=== PATIENT | female | born 1930 | race Caucasian/White ===

== ENCOUNTER → 2017-12-18 | Outpatient (CLI) | payer OTHER | LOC: HYPER 07:06 | DX: L97.516 Non-pressure chronic ulcer of other part of right foot with bone involvement without evidence of necrosis (principal); I13.0 Hypertensive heart and chronic kidney disease with heart failure and stage 1 through stage 4 chronic kidney disease, or unspecified chronic kidney disease; N18.9 Chronic kidney disease, unspecified; I50.9 Heart failure, unspecified; I25.2 Old myocardial infarction; J44.9 Chronic obstructive pulmonary disease, unspecified; K21.9 Gastro-esophageal reflux disease without esophagitis; Z87.891 Personal history of nicotine dependence; Z96.652 Presence of left artificial knee joint; Z89.421 Acquired absence of other right toe(s) ==

== ENCOUNTER → 2017-12-26 | Outpatient (CLI) | payer OTHER | LOC: HYPER 07:12 | DX: L97.516 Non-pressure chronic ulcer of other part of right foot with bone involvement without evidence of necrosis (principal); G60.3 Idiopathic progressive neuropathy; M86.8X8 Other osteomyelitis, other site; I13.0 Hypertensive heart and chronic kidney disease with heart failure and stage 1 through stage 4 chronic kidney disease, or unspecified chronic kidney disease; I50.9 Heart failure, unspecified; I25.2 Old myocardial infarction; J44.9 Chronic obstructive pulmonary disease, unspecified; K21.9 Gastro-esophageal reflux disease without esophagitis; L84 Corns and callosities; Z87.891 Personal history of nicotine dependence; Z96.652 Presence of left artificial knee joint; Z89.421 Acquired absence of other right toe(s); Z89.412 Acquired absence of left great toe; Z89.422 Acquired absence of other left toe(s) ==

== ENCOUNTER → 2018-01-09 | Outpatient (CLI) | payer OTHER | LOC: HYPER 07:05 | DX: L97.516 Non-pressure chronic ulcer of other part of right foot with bone involvement without evidence of necrosis (principal); L84 Corns and callosities; M86.8X8 Other osteomyelitis, other site; I13.0 Hypertensive heart and chronic kidney disease with heart failure and stage 1 through stage 4 chronic kidney disease, or unspecified chronic kidney disease; I50.9 Heart failure, unspecified; N18.9 Chronic kidney disease, unspecified; I25.2 Old myocardial infarction; J44.9 Chronic obstructive pulmonary disease, unspecified; K21.9 Gastro-esophageal reflux disease without esophagitis; Z87.891 Personal history of nicotine dependence; Z96.652 Presence of left artificial knee joint; Z89.421 Acquired absence of other right toe(s) ==

== ENCOUNTER → 2018-01-23 | Outpatient (CLI) | payer OTHER ==
[~2018-01-23] VITALS: Ht 165.1 cm; Wt 67.0 kg
[~2018-01-23] MED LIST: ADVAIR HFA 230M12 GM INH; ALLOPURINOL 10100 M1 PO; BAYER CHEWABLE81 MG PO; ESTRADIOL 1 MG T1 M1 PO; FENOFIBRATE48 MG PO; HYDROCHLOROTHIA25 M1 PO; NEURONTIN 400400 M1 PO; NORVASC10 MG PO; PRILOSEC 10MG C10 MG PO; VALIUM5 MG PO; VITAMINC500 PO
--- NOTE | ~2018-01-23 | HC ---
[facility] [place] [address] CONSULTATION Name: JANE YADAV Room #: REG MARIANNE Mouna#: [id number] Admission: 01/23/18 Attend Phys: Anthony Stephenson Discharge: Date of : 32 Report #: [id number] THIS REPORT FOR: //name// CC: Anthony Pearson [facility] DO Kolton Tello MD DATE OF SERVICE: 01/23/2018 HISTORY OF PRESENT ILLNESS: The patient is an 87-year-old white woman with history of a peripheral neuropathy, undetermined etiology, who has required previous transmetatarsal amputation of the right foot in 02/[address] Hayes at [facility] (orthopedic surgeon). The patient developed a chronic sinus tract ulcer under the head of the right first metatarsal some 3 or 4 months ago, was evaluated by Dr. Kolton Tello. Cultures were obtained on 12/18/2017 and they revealed 4+ Enterobacter cloacae and 3+ Proteus mirabilis, both sensitive to ciprofloxacin, ertapenem and cefepime. The patient did receive treatment with Cipro 500 mg p.o. b.i.d. for some 10 days. She did have an MRI of the right foot and this revealed marrow edema at the first metatarsal. On account of this, she is seeing me today in Infectious Disease consultation. PAST MEDICAL HISTORY: Left total knee replacement, bilateral shoulder rotator cuff surgery. Hypertension. Dyslipidemia. C-spine laminectomy. History of scoliosis. Cataract surgery. Appendectomy. Peripheral neuropathy undetermined type that appears to be running in the family. I entertained possibly a Bcrghzf-Eczwu-Qbpbs disease. DRUG ALLERGIES: None listed. MEDICATIONS: She is on treatment with fluconazole, salmeterol inhalation treatments for COPD, aspirin 81 mg daily, diazepam 5-10 mg b.i.d., gabapentin 400 mg t.i.d., estradiol 1 mg daily, hydrochlorothiazide 25 mg daily, allopurinol 100 mg daily, amlodipine besylate 10 mg daily, omeprazole 10 mg 2 capsules twice daily, fenofibrate 48 mg daily, vitamin C 500 mg b.i.d. SOCIAL HISTORY: . Comes to clinic with the patient's son and pmsjqgov-re-pok. The patient's son relates she also had peripheral neuropathy. REVIEW OF SYSTEMS: Noncontributory. PHYSICAL EXAMINATION: GENERAL: This is a well-developed, well-nourished 87-year-old woman in no distress. VITAL SIGNS: Weight 152.8, BP 142/71, pulse 79, temperature 97.7, O2 saturation [address] [address] CONSULTATION Name: JANE YADAV Room #: CARLOS ALBERTO Freire#: [id number] Admission: 01/23/18 Attend Phys: Anthony Stephenson Discharge: Date of : 32 Report #: [id number] 98% on room air. HEENMT: Status post cataract surgery. Mouth: Good oral hygiene, dentition. NECK: Supple. BREASTS: Deferred. LUNGS: Clear. HEART: S1, S2. ABDOMEN: Soft, no masses or megaly. EXTREMITIES: Status post remote transmetatarsal amputation, right foot, perfectly healed. On the sole of the right foot under the head of the right first metatarsal, there is sick sinus tract. This is probed with Q-Tip and I do not detect feel bone, but Dr. Tello tells me the previous probing did reveal bone that is why the MRI obtained that revealed findings compatible with osteomyelitis, first metatarsal. LABORATORY DATA: Cultures as dictated above. MRI findings as reported above. Renal function test was said to be normal. I have no black and white report. I will get those for the next time the patient visits with me. ASSESSMENT: 1. Chronic osteomyelitis, right first metatarsal with Enterobacter cloacae and Proteus mirabilis. 2. Remote transmetatarsal amputation, right foot. 3. Peripheral neuropathy, question Bhevyny-Uxvdb-Bjxid. 4. Hypertension. 5. Dyslipidemia. 6. Question history of gout. SUGGESTIONS: Discussed situation with Dr. Kolton Tello. Recommend treatment as for chronic osteomyelitis. We will attempt to treat with oral antibiotics, Cipro 500 mg b.i.d., #60, 2 refills. Reviewed MRI of the foot with radiologist at [facility]. I requested the patient visit with me again in 2-3 weeks. <ELECTRONICALLY SIGNED> By: Anthony Pearson MD 01/24/18 0934 1157 [id number] Anthony Pearson MD /nt
[2018-01-23 11:09] VITALS: BP 142/71
== END ==
LOC: SEN 06:44 → HYPER 06:44
DX: M86.671 Other chronic osteomyelitis, right ankle and foot (principal); B96.4 Proteus (mirabilis) (morganii) as the cause of diseases classified elsewhere; B96.89 Other specified bacterial agents as the cause of diseases classified elsewhere; G62.9 Polyneuropathy, unspecified; I10 Essential (primary) hypertension; E78.5 Hyperlipidemia, unspecified; Z89.431 Acquired absence of right foot

== ENCOUNTER → 2018-01-28 | Outpatient (CLI) | payer OTHER | LOC: HYPER 06:52 | DX: L97.516 Non-pressure chronic ulcer of other part of right foot with bone involvement without evidence of necrosis (principal); L84 Corns and callosities; I13.0 Hypertensive heart and chronic kidney disease with heart failure and stage 1 through stage 4 chronic kidney disease, or unspecified chronic kidney disease; I50.9 Heart failure, unspecified; I25.2 Old myocardial infarction; I10 Essential (primary) hypertension; G60.3 Idiopathic progressive neuropathy; J44.9 Chronic obstructive pulmonary disease, unspecified; K21.9 Gastro-esophageal reflux disease without esophagitis; Z87.891 Personal history of nicotine dependence; Z96.652 Presence of left artificial knee joint; Z89.421 Acquired absence of other right toe(s) ==

== ENCOUNTER → 2018-01-30 | Outpatient (CLI) | payer OTHER | LOC: HYPER 06:49 | DX: L97.516 Non-pressure chronic ulcer of other part of right foot with bone involvement without evidence of necrosis (principal); L84 Corns and callosities; M86.8X8 Other osteomyelitis, other site; I13.0 Hypertensive heart and chronic kidney disease with heart failure and stage 1 through stage 4 chronic kidney disease, or unspecified chronic kidney disease; I50.9 Heart failure, unspecified; G60.3 Idiopathic progressive neuropathy; I25.2 Old myocardial infarction; I10 Essential (primary) hypertension; J44.9 Chronic obstructive pulmonary disease, unspecified; K21.9 Gastro-esophageal reflux disease without esophagitis; Z87.891 Personal history of nicotine dependence; Z96.652 Presence of left artificial knee joint; Z89.421 Acquired absence of other right toe(s) ==

== ENCOUNTER → 2018-02-06 | Outpatient (CLI) | payer OTHER ==
[~2018-02-06] MED LIST changes: +CENTRUM SILVER1 EAC4 PO; +NORCO 5-325 TA1 EACH PO; +ZYVOX600 MG PO
== END ==
LOC: HYPER 06:51
DX: L97.516 Non-pressure chronic ulcer of other part of right foot with bone involvement without evidence of necrosis (principal); L84 Corns and callosities; M86.8X8 Other osteomyelitis, other site; G60.3 Idiopathic progressive neuropathy; I13.0 Hypertensive heart and chronic kidney disease with heart failure and stage 1 through stage 4 chronic kidney disease, or unspecified chronic kidney disease; I50.9 Heart failure, unspecified; N18.9 Chronic kidney disease, unspecified; I25.2 Old myocardial infarction; J44.9 Chronic obstructive pulmonary disease, unspecified; K21.9 Gastro-esophageal reflux disease without esophagitis; Z89.422 Acquired absence of other left toe(s); Z89.412 Acquired absence of left great toe; Z87.891 Personal history of nicotine dependence; Z96.652 Presence of left artificial knee joint; Z89.421 Acquired absence of other right toe(s)

== ENCOUNTER 2018-02-11 05:30 | Inpatient (IN) | payer OTHER ==
[~2018-02-11] VITALS: Ht 167.6 cm; Wt 74.0 kg
[2018-02-11] VITALS (12 sets, daily range): BP systolic 107–199; BP diastolic 44–80
--- NOTE | ~2018-02-11 | HC ---
[facility] [place] [address] CONSULTATION Name: JANE YADAV Room #: 449-I [facility] IN M.R.#: [id number] Admission: 02/11/18 Attend Phys: Mayito Concepcion MD Discharge: 02/13/18 Date of : 32 Report #: [id number] THIS REPORT FOR: //name// CC: Ebenezer Concepcion DATE OF SERVICE: 02/12/2018 ATTENDING PHYSICIAN: Dr. Concepcion. REASON FOR CONSULTATION: Antibiotic management, osteomyelitis, right first metatarsal. HISTORY OF PRESENT ILLNESS: The patient is an 87-year-old white woman who initially underwent transmetatarsal amputation of the right foot in 02/[address] Hayes at [facility]. The patient subsequently developed sinus tract under the head of the right first metatarsal on MRI compatible with osteomyelitis. Initial culture revealed Enterobacter cloacae and Proteus mirabilis, treated with ciprofloxacin orally. Repeat cultures on 01/2018 revealed MRSA, Enterococcus faecalis, antibiotic changed to Zyvox. The patient undergoes right amputation, right first metatarsal. The patient thought calling me because she was having second thoughts about surgery. PAST MEDICAL HISTORY: Left total knee replacement. Bilateral shoulder rotator cuff surgery. Hypertension. C-spine laminectomy. Dyslipidemia. Scoliosis. Cataract surgery. Appendectomy. Peripheral neuropathy, undetermined etiology, possible familial in nature since the patient's son also had the same problem. I entertain possibility of Dqvolvz-Hcied-Sfqrs disease. DRUG ALLERGIES: None listed. MEDICATIONS: The patient on enoxaparin, gabapentin ____ 600 mg p.o. b.i.d., polyethylene glycol 17 grams p.o. daily, famotidine 20 mg daily, docusate 100 mg b.i.d., Atrovent/albuterol q. 6 hours, budesonide inhalation treatment, meropenem 500 IV every 8 hours, half normal saline 1000 mL every 10 hours, hydrocodone p.r.n., morphine sulfate p.r.n., magnesium oxide x 1. SOCIAL HISTORY: See old records and H and P. FAMILY HISTORY: See old records and H and P. REVIEW OF SYSTEMS: Pain foot. Otherwise, noncontributory. PHYSICAL EXAMINATION: GENERAL: Well-developed woman, not toxic looking, no distress. VITAL SIGNS: Temperature 97.9, pulse 84, respirations 18, BP 136/52. [address] [address] CONSULTATION Name: JANE YADAV Room #: 449-I DIS IN .R.#: [id number] Admission: 02/11/18 Attend Phys: Mayito Concepcion MD Discharge: 02/13/18 Date of : 32 Report #: [id number] HEENMT: Within range. NECK: Supple, no thyromegaly. LUNGS: Clear. BREASTS: Deferred. HEART: S1, S2. No gallop or murmur. ABDOMEN: Soft, no masses or megaly. EXTREMITIES: No clubbing, cyanosis. Dressing and FLORENCIO right foot intact. We will try to remove those tomorrow. LABORATORY DATA: Culture obtained of the right foot wound on 01/28/2018 revealed 4+ methicillin-resistant Staphylococcus aureus and 4+ Enterococcus faecalis. Sodium 140, potassium 4, BUN 23, creatinine 1, magnesium 1.4. WBC 6.9, hemoglobin 10.3, platelets 173,000. ASSESSMENT: 1. Right first metatarsal osteomyelitis infection with Enterobacter cloacae and Proteus mirabilis initially; subsequent culture revealed methicillin-resistant Staphylococcus aureus and Enterococcus faecalis. 2. Status post ray amputation, right first metatarsal. 3. Remote history of transmetatarsal amputation, right foot. 4. Peripheral neuropathy, question etiology. 5. Hypomagnesemia. SUGGESTIONS: Recommend continue Zyvox 600 mg p.o. b.i.d. for another 10 days. We will follow the patient in the senior's clinic in 7-[address] Concepcion, thank you for requesting my suggestion. <ELECTRONICALLY SIGNED> By: Anthony Pearson MD 02/15/18 0554 0825 1033 Anthony Pearson MD /nt
--- NOTE | ~2018-02-11 | PATH ---
[facility] [address] [place] [address] PATHOLOGY RPT PROCEDURE Name: JANE YADAV Room #: 449-I DIS IN M.R.#: [id number] Admission: 02/11/18 Date of : 32 Discharge: 02/13/18 Report #: [id number] Path Case #: [id number] [facility] Accession Number: [id number] . 01 Material submitted: . RIGHT GREAT TOE . 01 Clinical history: . Right great toe osteomyelitis . 02 Diagnosis: Bone, right first metatarsal, amputation: - Bone at one end showing acute and chronic inflammation, compatible with the provided history of osteomyelitis. - Bone at the opposite end viable and unremarkable. (IUV:pit 02/13/2018) QTP/02/13/2018 . 02 Electronically signed: . Lauryn Florez MD, Pathologist NPI- [id number] . 01 Gross description: . The specimen is received in formalin, labeled "Jane Yadav, right first transmetatarsal", is a bone with attached cho-white soft tissue measuring 3.0 cm in length by 2.0 cm width. One surface shows a palmer smooth bone (inked black) with the opposite consisting of cortical, disrupted bone (inked blue). The specimen is longitudinally sectioned and a longitudinal territory service representative section is submitted in A1-A2. ([facility]; 02/11/2018) [facility] . 02 Pathologist provided ICD-10: M86.8X7 . 02 CPT . 708649, 157007 Specimen Comment: A courtesy copy of this report has been sent to Specimen Comment: [phone]. Specimen Comment: Report sent to Performed at: [address] [id number] MD Rigo Mares MD Phone: [phone] Performed at: [address] [id number] [address] [address] PATHOLOGY RPT PROCEDURE Name: JANE YADAV Room #: 449-I DIS IN M.R.#: [id number] Admission: 02/11/18 Date of : 32 Discharge: 02/13/18 Report #: [id number] Path Case #: [id number] MD Lauryn Florez MD Phone: [phone]
--- NOTE | ~2018-02-11 | EKG ---
[place] [address] [facility] [place] [address] ELECTROCARDIOGRAM REPORT Name: JANE YADAV Room #: 449-I ADM IN M.R.#: [id number] Admission: 02/11/18 Attend Phys: Mayito Concepcion MD Discharge: Date of : 32 Report #: [id number] THIS REPORT FOR: //name// [facility] Test Date: 2018-02-11 Test Time: 11:22:34 Pat Name: JANE YADAV Department: Room: [facility] Gender: F Telephone Solicitor: VARGAS : 1930 Requested By: Mayito Concepcion Order Number: [id number] MD: Luís Quintero Measurements Intervals [place] Rate: 83 P: 54 WA: 168 QRS: -21 QRSD: 90 T: 4 QT: 369 QTc: 434 Interpretive Statements Sinus rhythm Ventricular premature complex Borderline left axis deviation Poor R wave progression No previous ECG available for comparison Electronically Signed On 02-12-2018 8:39:57 PARCEL POST ORDER CLERK by Luís Quintero [email or web address] <ELECTRONICALLY SIGNED> By: Luís Quintero MD, [facility] 02/12/18 0839 21 21 Luís Quintero MD, FACC /EPI
--- NOTE | ~2018-02-11 | HC ---
[facility] [place] [address] CONSULTATION Name: JANE YADAV Room #: 449-I [facility] IN M.R.#: [id number] Admission: 02/11/18 Attend Phys: Mayito Concepcion MD Discharge: 02/13/18 Date of : 32 Report #: [id number] THIS REPORT FOR: //name// CC: Ebenezer Concepcion DATE OF SERVICE: 02/12/2018 REASON FOR CONSULTATION: Postoperative consultation, status post orthopedic surgery by Dr. Concepcion for osteomyelitis. HISTORY OF PRESENT ILLNESS: The patient is an 87-year-old woman, patient of Dr. Concepcion under consultation by Dr. Pearson who had undergone transmetatarsal amputation of the right foot on 02/[address] Hayes at [facility]. The patient developed a sinus tract into the head of the right first metatarsal. An MRI showed osteomyelitis. The patient is now postoperative day #1 status post debridement for osteomyelitis by Dr. Concepcion. Wound care team has been consulted for postoperative wound management. PAST MEDICAL HISTORY: Left total knee replacement, bilateral rotator cuff surgery, hypertension, history of cervical spine laminectomy, dyslipidemia, scoliosis, peripheral neuropathy. PAST SURGICAL HISTORY: Appendectomy, C-spine laminectomy, bilateral shoulder rotator cuff surgery, transmetatarsal amputation of right foot on 02/2017, now postoperative day #[address] Concepcion. MEDICATIONS: Include Lovenox, gabapentin, famotidine, docusate, budesonide, meropenem, hydrocodone, morphine. SOCIAL HISTORY: Noncontributory. PHYSICAL EXAMINATION: GENERAL: Shows a well-appearing elderly woman in no distress. VITAL SIGNS: Stable. She is afebrile. HEENT: Mucous membranes are moist. NECK: Supple. LUNGS: Respirations are unlabored. HEART: Shows regular rate and rhythm. ABDOMEN: Soft. EXTREMITIES: Shows a bandaged right foot with a small suction Peewee-Correa drain. Dr. Concepcion has instructed that the dressing not to be removed today. IMPRESSION: History of transmetatarsal amputation of the right foot with recurrent osteomyelitis, postoperative day #1 status post bony debridement by Dr. Concepcion. [address] [address] CONSULTATION Name: JANE YADAV Room #: 449-I [facility] IN ..#: [id number] Admission: 02/11/18 Attend Phys: Mayito Concepcion MD Discharge: 02/13/18 Date of : 32 Report #: [id number] PLAN: Continue antibiotic management by Dr. Pearson. Wound care team will follow as the wound is undressed and the patient is welcome to follow up with us after discharge in the wound care center at [facility]. <ELECTRONICALLY SIGNED> By: Abhay Overton MD 02/15/18 1535 0714 0743 Abhay Overton MD /kaur
--- NOTE | ~2018-02-11 | O ---
[facility] [place] [address] OPERATIVE REPORT Name: JANE YADAV Room #: 150-4 ADM IN M.R.#: [id number] Admission: 02/11/18 Attend Phys: Mayito Concepcion MD Discharge: Date of : 32 Report #: [id number] THIS REPORT FOR: //name// CC: Ebenezer Concepcion DATE OF SERVICE: 02/11/2018 PREOPERATIVE DIAGNOSIS: Right foot first metatarsal osteomyelitis. POSTOPERATIVE DIAGNOSIS: Right foot first metatarsal osteomyelitis. PROCEDURE: Right foot first ray amputation. SURGEON: Mayito Concpecion M.D. ANESTHESIA: General. ESTIMATED BLOOD LOSS: Minimal. DRAINS: None. TOURNIQUET TIME: 20 minutes. DESCRIPTION OF PROCEDURE: The patient brought to the operating room where she was placed under general anesthesia. Once under adequate general anesthesia, her right lower extremity was prepped and draped in sterile manner. The extremity was elevated and tourniquet placed to 250 mmHg. Utilizing the patient's previous scar, this was extended somewhat proximally and sharp dissection down to the bone was achieved. Once exposed, the metatarsal head along with a portion of the shaft was then excised utilizing a sagittal saw in an oblique fashion. Once complete, the wound was irrigated copiously. The metatarsal fragment was sent to pathology. The wound was irrigated copiously and closed over a drain with 2-0 nylon suture for the skin. The wound was dressed with Xeroform, 4 x 4s, and sterile soft compressive dressing was placed. Tourniquet was let down approximately 20 minutes. There were no complications from the procedure. The patient tolerated the procedure well and went to recovery room without incident. By: 1237 1308 Mayito Concepcion MD /nt
[2018-02-11 11:02] LABS: CALCIUM 9.3 mg/dL (8.5-10.1); POTASSIUM 3.8 mmol/L (3.5-5.1)
[2018-02-12 04:20] VITALS: BP 117/58
[2018-02-12 06:04] LABS: POTASSIUM 3.8 mmol/L (3.5-5.1)
[2018-02-12 07:27] VITALS: BP 118/53
[2018-02-12 08:21] LABS: CALCIUM 8.6 mg/dL (8.5-10.1); CREATININE 0.9 mg/dL (0.6-1.0); MAGNESIUM 1.5 mg/dL (1.8-2.4); POTASSIUM 3.9 mmol/L (3.5-5.1)
[2018-02-12 14:27] VITALS: BP 133/59
[2018-02-12 19:08] VITALS: BP 158/67
[2018-02-13 03:30] VITALS: BP 157/76
[2018-02-13 05:52] LABS: ABSOLUTE NEUTROPHILS 3.1 thou/uL (1.4-8.2); BASOPHILS 0.8 % (0.0-2.0); HEMATOCRIT 31.1 % (37.0-47.0); HEMOGLOBIN 10.3 gm/dL (12.0-15.0); LYMPHOCYTES 41.7 % (24.0-44.0); MCH 27.1 pg (26.0-34.0); MCV 82.2 fL (80.0-100.0); PLATELET COUNT 173 thou/uL (150-400); POLYS 45.5 % (36.0-66.0); RBC 3.78 mil/uL (4.20-5.00); RDW 14.7 % (10.5-14.5); WBC 6.9 thou/uL (4.0-11.0)
[2018-02-13 06:01] LABS: CALCIUM 7.9 mg/dL (8.5-10.1); MAGNESIUM 1.4 mg/dL (1.8-2.4)
[2018-02-13 07:07] VITALS: BP 136/52
[2018-02-13 14:06] VITALS: BP 136/52
== END 2018-02-13 14:50 | disposition home or self-care (01) | DRG 476 ==
LOC: 4W 05:30 → TBA 05:30 → PRE 08:59 → 4W 14:13 → PRE 14:47 → ENTRNSPT 02-13 14:19 → 4W 02-13 14:50
PROVIDERS: Nurse Practitioner; Orthopaedic Surgery Foot and Ankle Surgery
PROC: 0Y6M0Z9 Detachment at Right Foot, Partial 1st Ray, Open Approach (ICD-10-PCS; principal; 2018-02-11)
DX: M86.8X7 Other osteomyelitis, ankle and foot (principal); Z96.652 Presence of left artificial knee joint; I10 Essential (primary) hypertension; E78.5 Hyperlipidemia, unspecified; G62.9 Polyneuropathy, unspecified; B96.89 Other specified bacterial agents as the cause of diseases classified elsewhere; B96.4 Proteus (mirabilis) (morganii) as the cause of diseases classified elsewhere; E83.42 Hypomagnesemia; F32.9 Major depressive disorder, single episode, unspecified; F41.9 Anxiety disorder, unspecified; G89.29 Other chronic pain; J45.909 Unspecified asthma, uncomplicated; M54.9 Dorsalgia, unspecified; J44.9 Chronic obstructive pulmonary disease, unspecified; G47.33 Obstructive sleep apnea (adult) (pediatric); Z98.49 Cataract extraction status, unspecified eye; Z90.49 Acquired absence of other specified parts of digestive tract; Z89.431 Acquired absence of right foot; I25.2 Old myocardial infarction; Z90.711 Acquired absence of uterus with remaining cervical stump
CPT/HCPCS: 10047; 50010; 50101; 50331; 50386; 50951; 56525; 56526; 56528; 57091; 62110; 62900; 70005

== ENCOUNTER 2018-03-01 20:45 | Emergency (ER) | payer OTHER ==
[~2018-03-01] VITALS: Ht 167.6 cm; Wt 69.8 kg
[2018-03-01 21:23] LABS: ABSOLUTE NEUTROPHILS 6.1 thou/uL (1.4-8.2); BASOPHILS 0.4 % (0.0-2.0); EOSINOPHILS 4.9 % (0.0-3.0); HEMATOCRIT 35.2 % (37.0-47.0); HEMOGLOBIN 11.2 gm/dL (12.0-15.0); LYMPHOCYTES 19.9 % (24.0-44.0); MCH 26.1 pg (26.0-34.0); MCHC 31.8 g/dL (28.0-37.0); MONOCYTES 8.9 % (1.0-8.0); PLATELET COUNT 346 thou/uL (150-400); POLYS 65.9 % (36.0-66.0); RDW 14.9 % (10.5-14.5); WBC 9.2 thou/uL (4.0-11.0)
[2018-03-01 21:29] LABS: CALCIUM 9.2 mg/dL (8.5-10.1); POTASSIUM 3.1 mmol/L (3.5-5.1)
[2018-03-01 21:35] LABS: ALBUMIN 3.7 g/dL (3.4-5.0); TOTAL BILIRUBIN 0.5 mg/dL (<0.1-1.0); TOTAL PROTEIN 7.2 g/dL (6.4-8.2)
[2018-03-01] MEDS ORDERED: ZYVOX600 MG PO (22:28)
[2018-03-01 22:53] VITALS: BP 114/49
== END 2018-03-01 22:53 | disposition home or self-care (01) ==
LOC: ER 20:45
PROVIDERS: Physician Assistant
DX: L03.115 Cellulitis of right lower limb (principal); E87.6 Hypokalemia; I10 Essential (primary) hypertension; G62.9 Polyneuropathy, unspecified; K21.9 Gastro-esophageal reflux disease without esophagitis; J44.9 Chronic obstructive pulmonary disease, unspecified; F41.9 Anxiety disorder, unspecified; Z87.39 Personal history of other diseases of the musculoskeletal system and connective tissue; Z96.652 Presence of left artificial knee joint; Z90.711 Acquired absence of uterus with remaining cervical stump; Z90.49 Acquired absence of other specified parts of digestive tract